=== PATIENT | male | born 1940 | race Two or more races ===

== ENCOUNTER 2018-07-16 15:53 | Emergency (ER) | payer MEDICARE ==
[~2018-07-16] VITALS: Ht 162.6 cm; Wt 65.0 kg
[2018-07-16 15:59] VITALS: BP 136/78
[2018-07-16 17:38] LABS: CULTURE INDICATED? YES; MICROSCOPIC INDICATED
== END 2018-07-16 17:59 | disposition home or self-care (01) ==
LOC: ED 17:40
DX: B37.2 Candidiasis of skin and nail (principal); B37.9 Candidiasis, unspecified; N30.00 Acute cystitis without hematuria
CPT/HCPCS: 81001; 87077; 87086; 99284